=== PATIENT | male | born 2005 | race Two or more races ===

== ENCOUNTER 2023-09-27 19:34 | Emergency (ER) | payer BC, OTHER ==
[~2023-09-27] VITALS: Ht 182.9 cm; Wt 70.5 kg
[2023-09-28] MEDS ORDERED: PRED20TA2 PO (00:06)
[2023-09-28] MEDS ORDERED: DIPH25CA66 PO (00:06)
[2023-09-28] MEDS: diphenhdrAMINE HCL 50 MG/1 ML VL IM ONE (00:29)
[2023-09-28] MEDS: methylPREDNISolone SOD SUCC 125 MG/2 ML VL IM ONE (00:32)
[2023-09-28] MEDS ORDERED: PROMETHAZINE HCL 6.25 MG/5 ML ORAL SYRUP PO ONE (00:45)
[2023-09-28] MEDS: PROMETHAZINE HCL 6.25 MG/5 ML ORAL SYRUP PO ONE ×2 (01:26→01:27)
[2023-09-28] MEDS: PROMETHAZINE-DM 5 ML ORAL SYRUP ONE (01:28)
[2023-09-28 01:43] VITALS: BP 102/74; PULSE 96; RESP 16; TEMP 98.8; O2SAT 97
== END 2023-09-28 01:43 | disposition home or self-care (01) ==
LOC: ER 19:34
DX: T78.49XA Other allergy, initial encounter (principal); J06.9 Acute upper respiratory infection, unspecified; F41.9 Anxiety disorder, unspecified; Z79.899 Other long term (current) drug therapy; X58.XXXA Exposure to other specified factors, initial encounter
CPT/HCPCS: 96372; 99284; J1200; J2930